=== PATIENT | male | born 1965 | race Caucasian/White ===

== ENCOUNTER 2017-08-01 23:14 | Inpatient (IN) ==
[2017-08-02] MEDS ORDERED: ACETAMINOPHEN 325 MG TABLET PO ONE (01:18)
[2017-08-02] MEDS ORDERED: SODIUM CHLORIDE 0.9% 1,000 ML IV STA ×2 (01:18→02:45)
[2017-08-02 01:51] LABS: Basophils % 0.5 % (0.0-0.8); Eosinophils % 1.5 % (0.00-10.9); Hematocrit 39.5 VOL% (42.0-52.0); Immature Granulocytes % 1.5 %; Immature Granulocytes Absolute 0.03 #; Lymphocytes # 0.4 10*3/uL (1.4-4.0); Lymphocytes % 19.9 % (21.2-54.2); Mean Corpuscular HGB Conc 32.9 GM/DL (32-36); Mean Corpuscular Hemoglobin 31 PG (27-34); Mean Corpuscular Volume 94.3 FL (87-102); Mean Platelet Volume 11.2 FL (9.6-12.0); Monocytes # 0.1 10*3/uL (0.11-0.8); Neutrophils # 1.4 10*3/uL (1.4-7.4); Neutrophils % 71.6 % (38.7-73.9); Platelet Count 76 T/CUMM (130-400); Red Blood Count 4.19 MC/CUMM (3.8-5.5); Red Cell Distribution Width 14.4 % (9.3-17.3)
[2017-08-02 02:00] LABS: PT Patient Result 10.2 SECS
[2017-08-02 02:10] LABS: Alanine Aminotransferase 99 U/L (16-61); Albumin 2.9 G/DL (3.4-5.0); Alkaline Phosphatase 116 U/L (45-117); Aspartate Amino Transferase 31 U/L (0-37); Blood Urea Nitrogen 16 MG/DL (7-18); Calcium 8.8 MG/DL (8.5-10.1); Glucose 107 MG/DL (74-106); Osmolality,Calculated 273.8 MOS/KG (273-304); Potassium 3.9 MMOL/L (3.5-5.1); Sodium 137 MMOL/L (136-145); Total Protein 6.5 G/DL (6.4-8.3)
[2017-08-02 02:11] LABS: Troponin I Only < 0.015 NG/ML (0.00-0.045)
[2017-08-02 02:41] LABS: Band Neutrophils 12 % (0-10); Eosinophils 8 % (0-10); Lymphocytes 14 % (20-55); Segmented Neutrophils 56 % (50-85); Total Cells Counted 100
[2017-08-02 04:02] LABS: Amorphous Crystals,Urine Occasional /HPF (Few); Apearance,Urine CLEAR (Clear); Bilirubin,Urine Negative (Negative); Blood, Urine Small mg/dL (Negative); Glucose,Urine (UA) Negative (Negative); Ketones,Urine Negative (Negative); Mucus,Urine Occasional /LPF (Occasional); Nitrite,Urine Negative (Negative); Protein,Urine Negative; RBC,Urine 1 /HPF (0-4); Urine Color Yellow (Yellow); Urine Specific Gravity 1.014 (1.001-1.035); WBC,Urine 2 /HPF (0-6)
[2017-08-02] MEDS ORDERED: PIPERACILLIN/TAZOBACTAM 3,375 MG in SODIUM CHLORIDE 0.9% 100 ML IV STA (04:07)
[2017-08-02] MEDS ORDERED: VANCOMYCIN INJ 1,000 MG in SODIUM CHLORIDE 0.9% 250 ML IV STA (04:07)
[2017-08-02] MEDS ORDERED: ONDANSETRON 4 MG/2 ML VIAL IV PRN (06:12)
[2017-08-02] MEDS: SODIUM CHLORIDE 0.9% 1,000 ML IV SCH ×2 (06:29→19:38)
[2017-08-02] MEDS: CEFEPIME 2,000 MG in SYRINGE 1 EACH IV SCH ×3 (06:57→22:10)
[2017-08-02] MEDS: BISACODYL 5 MG TABLET PO SCH (09:58)
[2017-08-02] MEDS: FILGRASTIM-SNDZ 480 MCG/0.8 ML SYRINGE SUBCUT SCH (09:58)
[2017-08-02] MEDS: PANTOPRAZOLE 40 MG TABLET PO SCH (09:58)
[2017-08-02] MEDS: ALLOPURINOL 300 MG TABLET PO SCH (09:58)
[2017-08-02] MEDS: MEROPENEM 1,000 MG in SYRINGE 1 EACH IV SCH ×2 (09:59→17:24)
[2017-08-02] MEDS ORDERED: LACTULOSE 20 GM/30 ML UDCUP PO ONE (10:18)
[2017-08-02] MEDS: DOCUSATE SODIUM 100 MG CAPSULE PO SCH (11:39)
[2017-08-02] MEDS: ACETAMINOPHEN 325 MG TABLET PO PRN ×2 (13:03→19:38)
[2017-08-03] MEDS: ACETAMINOPHEN 325 MG TABLET PO PRN ×2 (00:01→15:42)
[2017-08-03] MEDS: MEROPENEM 1,000 MG in SYRINGE 1 EACH IV SCH ×3 (01:16→17:36)
[2017-08-03] MEDS: CEFEPIME 2,000 MG in SYRINGE 1 EACH IV SCH ×3 (05:58→22:13)
[2017-08-03] MEDS: ALLOPURINOL 300 MG TABLET PO SCH (09:46)
[2017-08-03] MEDS: FILGRASTIM-SNDZ 480 MCG/0.8 ML SYRINGE SUBCUT SCH (09:46)
[2017-08-03] MEDS: PANTOPRAZOLE 40 MG TABLET PO SCH (09:46)
[2017-08-03] MEDS: DOCUSATE SODIUM 100 MG CAPSULE PO SCH (09:46)
[2017-08-03] MEDS: BISACODYL 5 MG TABLET PO SCH (09:46)
[2017-08-03] MEDS: SODIUM CHLORIDE 0.9% 1,000 ML IV SCH (10:55)
[2017-08-03] MEDS: guaiFENesin 200 MG/10 ML UDCUP PO PRN (12:33)
[2017-08-04] MEDS: SODIUM CHLORIDE 0.9% 1,000 ML IV SCH ×2 (00:20→12:29)
[2017-08-04] MEDS: MEROPENEM 1,000 MG in SYRINGE 1 EACH IV SCH ×3 (02:02→17:47)
[2017-08-04 05:21] LABS: Basophils % 0.9 % (0.0-0.8); Eosinophils % 0.3 % (0.00-10.9); Hematocrit 36.3 VOL% (42.0-52.0); Hemoglobin 12.1 GM/DL (14.0-18.0); Immature Granulocytes % 9.9 %; Immature Granulocytes Absolute 0.34 #; Lymphocytes # 0.2 10*3/uL (1.4-4.0); Lymphocytes % 6.4 % (21.2-54.2); Mean Corpuscular HGB Conc 33.3 GM/DL (32-36); Mean Corpuscular Hemoglobin 31 PG (27-34); Mean Corpuscular Volume 93.3 FL (87-102); Mean Platelet Volume 11.4 FL (9.6-12.0); Monocytes # 0.1 10*3/uL (0.11-0.8); Monocytes % 1.7 % (1.7-12.7); Neutrophils # 2.8 10*3/uL (1.4-7.4); Neutrophils % 80.8 % (38.7-73.9); Platelet Count 57 T/CUMM (130-400); Red Blood Count 3.89 MC/CUMM (3.8-5.5); Red Cell Distribution Width 14.3 % (9.3-17.3); White Blood Count 3.4 T/CUMM (4-12)
[2017-08-04 05:44] LABS: Calcium 8.5 MG/DL (8.5-10.1); Osmolality,Calculated 274.7 MOS/KG (273-304); Potassium 3.8 MMOL/L (3.5-5.1)
[2017-08-04 05:52] LABS: Band Neutrophils 4 % (0-10); Lymphocytes 7 % (20-55); Metamyelocytes 1 %; Segmented Neutrophils 78 % (50-85); Total Cells Counted 100
[2017-08-04 05:53] LABS: Microcytosis Slight; Platelet Estimate Decreased
[2017-08-04] MEDS: CEFEPIME 2,000 MG in SYRINGE 1 EACH IV SCH (06:08)
[2017-08-04] MEDS ORDERED: KETOROLAC 30 MG/1 ML VIAL IV ONE (07:57)
[2017-08-04] MEDS: FILGRASTIM-SNDZ 480 MCG/0.8 ML SYRINGE SUBCUT SCH (10:01)
[2017-08-04] MEDS: PANTOPRAZOLE 40 MG TABLET PO SCH (10:02)
[2017-08-04] MEDS: DOCUSATE SODIUM 100 MG CAPSULE PO SCH (10:02)
[2017-08-04] MEDS: BISACODYL 5 MG TABLET PO SCH (10:02)
[2017-08-04] MEDS: ALLOPURINOL 300 MG TABLET PO SCH (10:06)
[2017-08-04] MEDS ORDERED: MAGNESIUM CITRATE 300 ML BOTTLE PO PRN (11:08)
[2017-08-04] MEDS: ACETAMINOPHEN 325 MG TABLET PO PRN (17:46)
[2017-08-05] MEDS: MEROPENEM 1,000 MG in SYRINGE 1 EACH IV SCH ×3 (02:08→17:21)
[2017-08-05 05:30] LABS: Basophils % 1.1 % (0.0-0.8); Eosinophils % 0.3 % (0.00-10.9); Hematocrit 34.5 VOL% (42.0-52.0); Hemoglobin 11.8 GM/DL (14.0-18.0); Immature Granulocytes % 1.7 %; Immature Granulocytes Absolute 0.06 #; Lymphocytes # 0.1 10*3/uL (1.4-4.0); Lymphocytes % 3.4 % (21.2-54.2); Mean Corpuscular HGB Conc 34.2 GM/DL (32-36); Mean Corpuscular Hemoglobin 31 PG (27-34); Mean Corpuscular Volume 91.3 FL (87-102); Mean Platelet Volume 11.3 FL (9.6-12.0); Monocytes # 0.1 10*3/uL (0.11-0.8); Monocytes % 2.3 % (1.7-12.7); Neutrophils # 3.2 10*3/uL (1.4-7.4); Neutrophils % 91.2 % (38.7-73.9); Red Blood Count 3.78 MC/CUMM (3.8-5.5); Red Cell Distribution Width 14.4 % (9.3-17.3); White Blood Count 3.5 T/CUMM (4-12)
[2017-08-05 05:36] LABS: Platelet Count 67 T/CUMM (130-400)
[2017-08-05 05:52] LABS: Band Neutrophils 3 % (0-10); Calcium 8.4 MG/DL (8.5-10.1); Lymphocytes 2 % (20-55); Osmolality,Calculated 275.5 MOS/KG (273-304); Potassium 4.7 MMOL/L (3.5-5.1); Segmented Neutrophils 93 % (50-85); Total Cells Counted 100
[2017-08-05 05:53] LABS: Platelet Estimate Decreased
[2017-08-05] MEDS: DOCUSATE SODIUM 100 MG CAPSULE PO SCH (10:22)
[2017-08-05] MEDS: PANTOPRAZOLE 40 MG TABLET PO SCH (10:22)
[2017-08-05] MEDS: BISACODYL 5 MG TABLET PO SCH (10:23)
[2017-08-05] MEDS: ALLOPURINOL 300 MG TABLET PO SCH (10:24)
[2017-08-05] MEDS: FILGRASTIM-SNDZ 480 MCG/0.8 ML SYRINGE SUBCUT SCH (10:26)
[2017-08-05] MEDS: LEVOFLOXACIN INJ 750 MG in PREMIX 1 EACH IV SCH (10:35)
[2017-08-05] MEDS: ACETAMINOPHEN 325 MG TABLET PO PRN ×3 (11:04→20:14)
[2017-08-05] MEDS: guaiFENesin 200 MG/10 ML UDCUP PO PRN (15:00)
[2017-08-06] MEDS: MEROPENEM 1,000 MG in SYRINGE 1 EACH IV SCH ×3 (01:42→17:51)
[2017-08-06] MEDS: ACETAMINOPHEN 325 MG TABLET PO PRN (01:52)
[2017-08-06] MEDS: guaiFENesin 200 MG/10 ML UDCUP PO PRN ×2 (07:16→21:16)
[2017-08-06] MEDS: BISACODYL 5 MG TABLET PO SCH (08:59)
[2017-08-06] MEDS: DOCUSATE SODIUM 100 MG CAPSULE PO SCH (09:01)
[2017-08-06] MEDS: IBUPROFEN 400 MG TABLET PO PRN ×2 (09:01→21:09)
[2017-08-06] MEDS: ALLOPURINOL 300 MG TABLET PO SCH (09:02)
[2017-08-06] MEDS: PANTOPRAZOLE 40 MG TABLET PO SCH (09:02)
[2017-08-06] MEDS: FILGRASTIM-SNDZ 480 MCG/0.8 ML SYRINGE SUBCUT SCH (09:07)
[2017-08-06] MEDS: LEVOFLOXACIN INJ 750 MG in PREMIX 1 EACH IV SCH (09:15)
[2017-08-06] MEDS ORDERED: ACETAMINOPHEN 325 MG TABLET PO ONE (11:10)
[2017-08-06] MEDS ORDERED: diphenhydrAMINE CAP 25 MG CAPSULE PO ONE (11:12)
[2017-08-06] MEDS ORDERED: IMMUNE GLOBULIN 10% 20 GM in PREMIX 1 EACH IV ONE (11:30)
[2017-08-06] MEDS ORDERED: SODIUM CHLORIDE 3% 4 ML NEB RESP TX ONE (14:30)
[2017-08-07] MEDS: MEROPENEM 1,000 MG in SYRINGE 1 EACH IV SCH ×3 (01:30→17:18)
[2017-08-07] MEDS: ACETAMINOPHEN 325 MG TABLET PO PRN ×2 (01:34→19:30)
[2017-08-07 05:39] LABS: Basophils % 2.1 % (0.0-0.8); Eosinophils % 1.1 % (0.00-10.9); Hematocrit 35.4 VOL% (42.0-52.0); Hemoglobin 12.2 GM/DL (14.0-18.0); Immature Granulocytes % 13.8 %; Immature Granulocytes Absolute 0.26 #; Lymphocytes # 0.1 10*3/uL (1.4-4.0); Lymphocytes % 5.8 % (21.2-54.2); Mean Corpuscular HGB Conc 34.5 GM/DL (32-36); Mean Corpuscular Hemoglobin 31 PG (27-34); Mean Corpuscular Volume 90.3 FL (87-102); Mean Platelet Volume 10.8 FL (9.6-12.0); Monocytes % 1.6 % (1.7-12.7); Neutrophils # 1.4 10*3/uL (1.4-7.4); Neutrophils % 75.6 % (38.7-73.9); Platelet Count 89 T/CUMM (130-400); Red Blood Count 3.92 MC/CUMM (3.8-5.5); Red Cell Distribution Width 14.2 % (9.3-17.3); White Blood Count 1.9 T/CUMM (4-12)
[2017-08-07 06:21] LABS: Osmolality,Calculated 278.7 MOS/KG (273-304); Potassium 4.2 MMOL/L (3.5-5.1)
[2017-08-07 06:22] LABS: Band Neutrophils 9 % (0-10); Lymphocytes 16 % (20-55); Platelet Estimate Decreased; Segmented Neutrophils 70 % (50-85); Total Cells Counted 100
[2017-08-07] MEDS: DOCUSATE SODIUM 100 MG CAPSULE PO SCH (08:34)
[2017-08-07] MEDS: PANTOPRAZOLE 40 MG TABLET PO SCH (08:35)
[2017-08-07] MEDS: BISACODYL 5 MG TABLET PO SCH (08:35)
[2017-08-07] MEDS: ALLOPURINOL 300 MG TABLET PO SCH (08:35)
[2017-08-07] MEDS: FILGRASTIM-SNDZ 480 MCG/0.8 ML SYRINGE SUBCUT SCH (08:36)
[2017-08-07] MEDS ORDERED: diphenhydrAMINE 50 MG/1 ML VIAL IV PRN (09:52)
[2017-08-07] MEDS ORDERED: diphenhydrAMINE CAP 25 MG CAPSULE PO PRN (10:15)
[2017-08-07] MEDS ORDERED: diphenhydrAMINE CAP 25 MG CAPSULE ONE (10:21)
[2017-08-07] MEDS: guaiFENesin 200 MG/10 ML UDCUP PO PRN ×2 (10:23→17:18)
[2017-08-07] MEDS: LEVOFLOXACIN INJ 750 MG in PREMIX 1 EACH IV SCH (10:24)
[2017-08-07] MEDS ORDERED: BENZONATATE 100 MG CAPSULE PO PRN (13:16)
[2017-08-08] MEDS: MEROPENEM 1,000 MG in SYRINGE 1 EACH IV SCH (01:08)
[2017-08-08 04:27] LABS: Calcium 8.3 MG/DL (8.5-10.1); Potassium 4.3 MMOL/L (3.5-5.1)
[2017-08-08 07:36] LABS: Basophils % 0.5 % (0.0-0.8); Eosinophils % 0.5 % (0.00-10.9); Hematocrit 33.8 VOL% (42.0-52.0); Hemoglobin 11.5 GM/DL (14.0-18.0); Immature Granulocytes % 1.8 %; Immature Granulocytes Absolute 0.04 #; Lymphocytes # 0.2 10*3/uL (1.4-4.0); Lymphocytes % 6.8 % (21.2-54.2); Mean Corpuscular Hemoglobin 31 PG (27-34); Mean Corpuscular Volume 91.6 FL (87-102); Mean Platelet Volume 10.9 FL (9.6-12.0); Monocytes % 1.4 % (1.7-12.7); Platelet Count 107 T/CUMM (130-400); Red Blood Count 3.69 MC/CUMM (3.8-5.5); Red Cell Distribution Width 14.2 % (9.3-17.3); White Blood Count 2.2 T/CUMM (4-12)
[2017-08-08 09:07] LABS: Band Neutrophils 7 % (0-10); Hypochromasia 2+; Lymphocytes 5 % (20-55); Microcytosis 2+; Platelet Estimate Decreased; Segmented Neutrophils 81 % (50-85); Total Cells Counted 100
[2017-08-08] MEDS: LEVOFLOXACIN INJ 750 MG in PREMIX 1 EACH IV SCH (09:19)
[2017-08-08] MEDS: DOCUSATE SODIUM 100 MG CAPSULE PO SCH (09:20)
[2017-08-08] MEDS: BISACODYL 5 MG TABLET PO SCH (09:20)
[2017-08-08] MEDS: FILGRASTIM-SNDZ 480 MCG/0.8 ML SYRINGE SUBCUT SCH (09:20)
[2017-08-08] MEDS: ALLOPURINOL 300 MG TABLET PO SCH (09:20)
[2017-08-08] MEDS: PANTOPRAZOLE 40 MG TABLET PO SCH (09:20)
[2017-08-08] MEDS ORDERED: IMMUNE GLOBULIN 10% 20 GM in PREMIX 1 EACH IV ONE (09:27)
[2017-08-08] MEDS ORDERED: VORICONAZOLE 50 MG TABLET PO SCH (09:30)
[2017-08-08] MEDS: VANCOMYCIN INJ 1,250 MG in SODIUM CHLORIDE 0.9% 250 ML IV SCH ×2 (11:02→23:56)
[2017-08-08] MEDS: VORICONAZOLE 200 MG TABLET PO SCH ×2 (12:16→20:28)
[2017-08-08] MEDS: ACETAMINOPHEN 325 MG TABLET PO PRN (16:45)
[2017-08-08] MEDS: CEFEPIME 1,000 MG in SYRINGE 1 EACH IV SCH (18:26)
[2017-08-08 20:21] LABS: Apearance,Urine CLOUDY (Clear); Bilirubin,Urine Negative (Negative); Blood, Urine Moderate mg/dL (Negative); Glucose,Urine (UA) Negative (Negative); Ketones,Urine Negative (Negative); Mucus,Urine Occasional /LPF (Occasional); Nitrite,Urine Negative (Negative); Protein,Urine 30 MG/DL; RBC,Urine 11 /HPF (0-4); Squamous Epithelial Cell,Urine Occasional /HPF (0-10); Urine Color Yellow (Yellow); Urine Specific Gravity 1.013 (1.001-1.035); WBC,Urine 2 /HPF (0-6)
[2017-08-09] MEDS: guaiFENesin 200 MG/10 ML UDCUP PO PRN (05:13)
[2017-08-09] MEDS: CEFEPIME 1,000 MG in SYRINGE 1 EACH IV SCH ×2 (05:57→18:41)
[2017-08-09 06:09] LABS: Basophils % 0.4 % (0.0-0.8); Eosinophils % 1.3 % (0.00-10.9); Hematocrit 31.3 VOL% (42.0-52.0); Hemoglobin 10.3 GM/DL (14.0-18.0); Immature Granulocytes % 1.8 %; Immature Granulocytes Absolute 0.04 #; Lymphocytes # 0.2 10*3/uL (1.4-4.0); Lymphocytes % 6.7 % (21.2-54.2); Mean Corpuscular HGB Conc 32.9 GM/DL (32-36); Mean Corpuscular Hemoglobin 31 PG (27-34); Mean Corpuscular Volume 94.3 FL (87-102); Mean Platelet Volume 11.1 FL (9.6-12.0); Monocytes % 1.8 % (1.7-12.7); Platelet Count 108 T/CUMM (130-400); Red Blood Count 3.32 MC/CUMM (3.8-5.5); Red Cell Distribution Width 14.2 % (9.3-17.3); White Blood Count 2.2 T/CUMM (4-12)
[2017-08-09 06:33] LABS: Albumin 1.6 G/DL (3.4-5.0); Bilirubin,Total 1.7 MG/DL (0.2-1.0); Calcium 8.4 MG/DL (8.5-10.1); Osmolality,Calculated 275.8 MOS/KG (273-304); Potassium 4.5 MMOL/L (3.5-5.1); Total Protein 6.1 G/DL (6.4-8.3)
[2017-08-09 07:15] LABS: Band Neutrophils 7 % (0-10); Eosinophils 1 % (0-10); Hypochromasia 1+; Lymphocytes 7 % (20-55); Platelet Estimate Normal; Segmented Neutrophils 83 % (50-85); Total Cells Counted 100
[2017-08-09] MEDS: PANTOPRAZOLE 40 MG TABLET PO SCH (08:18)
[2017-08-09] MEDS: ALLOPURINOL 300 MG TABLET PO SCH (08:18)
[2017-08-09] MEDS: DOCUSATE SODIUM 100 MG CAPSULE PO SCH (08:18)
[2017-08-09] MEDS: FILGRASTIM-SNDZ 480 MCG/0.8 ML SYRINGE SUBCUT SCH (08:18)
[2017-08-09] MEDS: VORICONAZOLE 200 MG TABLET PO SCH ×2 (08:18→21:35)
[2017-08-09] MEDS: BISACODYL 5 MG TABLET PO SCH (08:19)
[2017-08-09] MEDS: LEVOFLOXACIN INJ 750 MG in PREMIX 1 EACH IV SCH (08:19)
[2017-08-09] MEDS: VANCOMYCIN INJ 1,250 MG in SODIUM CHLORIDE 0.9% 250 ML IV SCH (11:08)
[2017-08-09] MEDS: ACETAMINOPHEN 325 MG TABLET PO PRN (15:16)
[2017-08-10] MEDS: VANCOMYCIN INJ 1,250 MG in SODIUM CHLORIDE 0.9% 250 ML IV SCH ×3 (00:07→20:25)
[2017-08-10] MEDS ORDERED: MEPERIDINE 50 MG/1 ML VIAL IM ONE (06:00)
[2017-08-10] MEDS ORDERED: diphenhydrAMINE 50 MG/1 ML VIAL IM ONE (06:00)
[2017-08-10] MEDS ORDERED: BENZONATATE 100 MG CAPSULE PO ONE (06:00)
[2017-08-10] MEDS: CEFEPIME 1,000 MG in SYRINGE 1 EACH IV SCH ×2 (06:08→18:37)
[2017-08-10 06:26] LABS: Eosinophils % 1.2 % (0.00-10.9); Hemoglobin 10.1 GM/DL (14.0-18.0); Immature Granulocytes % 19.9 %; Immature Granulocytes Absolute 0.33 #; Lymphocytes # 0.1 10*3/uL (1.4-4.0); Lymphocytes % 8.4 % (21.2-54.2); Mean Corpuscular HGB Conc 33.7 GM/DL (32-36); Mean Corpuscular Hemoglobin 31 PG (27-34); Mean Corpuscular Volume 92.3 FL (87-102); Mean Platelet Volume 10.9 FL (9.6-12.0); Monocytes # 0.1 10*3/uL (0.11-0.8); Monocytes % 3.6 % (1.7-12.7); Neutrophils # 1.1 10*3/uL (1.4-7.4); Neutrophils % 66.9 % (38.7-73.9); Platelet Count 117 T/CUMM (130-400); Red Blood Count 3.25 MC/CUMM (3.8-5.5); Red Cell Distribution Width 14.3 % (9.3-17.3); White Blood Count 1.7 T/CUMM (4-12)
[2017-08-10 06:56] LABS: Albumin 1.6 G/DL (3.4-5.0); Bilirubin,Total 1.7 MG/DL (0.2-1.0); Calcium 8.5 MG/DL (8.5-10.1); Osmolality,Calculated 275.8 MOS/KG (273-304); Potassium 4.6 MMOL/L (3.5-5.1)
[2017-08-10 07:02] LABS: Band Neutrophils 3 % (0-10); Eosinophils 1 % (0-10); Hypochromasia 1+; Lymphocytes 5 % (20-55); Segmented Neutrophils 86 % (50-85); Total Cells Counted 100
[2017-08-10 07:03] LABS: Microcytosis 1+; Platelet Estimate Adequate
[2017-08-10] MEDS ORDERED: LIDOCAINE 2% VISCOUS 100 ML BOTTLE SWISH/SWAL ONE (10:16)
[2017-08-10] MEDS ORDERED: LIDOCAINE 2% 20 ML VIAL RESP TX ONE (10:16)
[2017-08-10] MEDS ORDERED: LIDOCAINE 1% 20 ML VIAL MISC INJ ONE (10:16)
[2017-08-10] MEDS ORDERED: EPINEPHrine 1 MG/ML VIAL ET ONE (10:29)
[2017-08-10] MEDS ORDERED: EPINEPHrine 1 MG/ML VIAL ONE (11:05)
[2017-08-10] MEDS: BISACODYL 5 MG TABLET PO SCH (12:54)
[2017-08-10] MEDS: PANTOPRAZOLE 40 MG TABLET PO SCH (12:54)
[2017-08-10] MEDS: DOCUSATE SODIUM 100 MG CAPSULE PO SCH (12:54)
[2017-08-10] MEDS: VORICONAZOLE 200 MG TABLET PO SCH ×2 (12:55→20:20)
[2017-08-10] MEDS: ALLOPURINOL 300 MG TABLET PO SCH (12:55)
[2017-08-10] MEDS: FILGRASTIM-SNDZ 480 MCG/0.8 ML SYRINGE SUBCUT SCH (12:59)
[2017-08-10] MEDS: LEVOFLOXACIN INJ 750 MG in PREMIX 1 EACH IV SCH (13:07)
[2017-08-10] MEDS: IBUPROFEN 400 MG TABLET PO PRN (16:25)
[2017-08-11] MEDS: VANCOMYCIN INJ 1,250 MG in SODIUM CHLORIDE 0.9% 250 ML IV SCH (04:10)
[2017-08-11 05:02] LABS: Basophils % 0.8 % (0.0-0.8); Eosinophils % 2.5 % (0.00-10.9); Hematocrit 29.2 VOL% (42.0-52.0); Hemoglobin 9.5 GM/DL (14.0-18.0); Immature Granulocytes % 1.7 %; Immature Granulocytes Absolute 0.02 #; Lymphocytes # 0.1 10*3/uL (1.4-4.0); Lymphocytes % 8.4 % (21.2-54.2); Mean Corpuscular HGB Conc 32.5 GM/DL (32-36); Mean Corpuscular Hemoglobin 31 PG (27-34); Mean Corpuscular Volume 95.1 FL (87-102); Monocytes % 2.5 % (1.7-12.7); Neutrophils % 84.1 % (38.7-73.9); Platelet Count 125 T/CUMM (130-400); Red Blood Count 3.07 MC/CUMM (3.8-5.5); Red Cell Distribution Width 14.1 % (9.3-17.3); White Blood Count 1.2 T/CUMM (4-12)
[2017-08-11 05:44] LABS: Band Neutrophils 1 % (0-10); Eosinophils 2 % (0-10); Lymphocytes 4 % (20-55); Segmented Neutrophils 90 % (50-85); Total Cells Counted 100
[2017-08-11 05:45] LABS: Hypochromasia 1+; Platelet Estimate Decreased
[2017-08-11 05:46] LABS: Microcytosis 1+
[2017-08-11 05:54] LABS: Albumin 1.7 G/DL (3.4-5.0); Bilirubin,Total 1.5 MG/DL (0.2-1.0); Osmolality,Calculated 285.4 MOS/KG (273-304); Potassium 4.2 MMOL/L (3.5-5.1); Total Protein 5.9 G/DL (6.4-8.3)
[2017-08-11] MEDS: CEFEPIME 1,000 MG in SYRINGE 1 EACH IV SCH ×2 (06:12→18:18)
[2017-08-11] MEDS ORDERED: LINACLOTIDE 145 MCG CAPSULE PO SCH (07:30)
[2017-08-11] MEDS: ALLOPURINOL 300 MG TABLET PO SCH (09:06)
[2017-08-11] MEDS: BISACODYL 5 MG TABLET PO SCH (09:06)
[2017-08-11] MEDS: DOCUSATE SODIUM 100 MG CAPSULE PO SCH (09:06)
[2017-08-11] MEDS: PANTOPRAZOLE 40 MG TABLET PO SCH (09:07)
[2017-08-11] MEDS: VORICONAZOLE 200 MG TABLET PO SCH ×2 (09:12→20:45)
[2017-08-11] MEDS: FILGRASTIM-SNDZ 480 MCG/0.8 ML SYRINGE SUBCUT SCH (09:14)
[2017-08-11] MEDS: LEVOFLOXACIN INJ 750 MG in PREMIX 1 EACH IV SCH (09:17)
[2017-08-11] MEDS ORDERED: MAGNESIUM HYDROXIDE SUSP 30 ML UDCUP PO ONE (09:35)
[2017-08-11] MEDS ORDERED: LACTULOSE 20 GM/30 ML UDCUP PO ONE (09:36)
[2017-08-11] MEDS ORDERED: BISACODYL 5 MG TABLET PO ONE (09:37)
[2017-08-11] MEDS: BENZONATATE 100 MG CAPSULE PO SCH ×2 (11:26→20:45)
[2017-08-11] MEDS: IBUPROFEN 400 MG TABLET PO PRN (11:35)
[2017-08-11 15:41] LABS: Histoplasma Immnodiffusion Negative (Negative)
[2017-08-11] MEDS ORDERED: SODIUM CHLORIDE 0.9% 500 ML IV ONE (18:22)
[2017-08-12] MEDS: CEFEPIME 1,000 MG in SYRINGE 1 EACH IV SCH ×2 (05:34→18:11)
[2017-08-12 06:15] LABS: Calcium 8.1 MG/DL (8.5-10.1); Osmolality,Calculated 287.4 MOS/KG (273-304); Potassium 3.8 MMOL/L (3.5-5.1)
[2017-08-12] MEDS ORDERED: VANCOMYCIN INJ 1,250 MG in SODIUM CHLORIDE 0.9% 250 ML IV PRN (08:10)
[2017-08-12] MEDS: FILGRASTIM-SNDZ 480 MCG/0.8 ML SYRINGE SUBCUT SCH (08:20)
[2017-08-12] MEDS: VORICONAZOLE 200 MG TABLET PO SCH (08:20)
[2017-08-12] MEDS: BENZONATATE 100 MG CAPSULE PO SCH ×2 (08:21→21:00)
[2017-08-12] MEDS: PANTOPRAZOLE 40 MG TABLET PO SCH (08:21)
[2017-08-12] MEDS: LINACLOTIDE 145 MCG CAPSULE PO SCH (08:21)
[2017-08-12] MEDS: BISACODYL 5 MG TABLET PO SCH (08:21)
[2017-08-12 08:30] LABS: Basophils % 0.6 % (0.0-0.8); Eosinophils % 1.7 % (0.00-10.9); Hematocrit 30.3 VOL% (42.0-52.0); Hemoglobin 9.9 GM/DL (14.0-18.0); Immature Granulocytes % 11.5 %; Lymphocytes # 0.1 10*3/uL (1.4-4.0); Lymphocytes % 5.2 % (21.2-54.2); Mean Corpuscular HGB Conc 32.7 GM/DL (32-36); Mean Corpuscular Hemoglobin 31 PG (27-34); Mean Corpuscular Volume 94.7 FL (87-102); Mean Platelet Volume 11.3 FL (9.6-12.0); Monocytes # 0.1 10*3/uL (0.11-0.8); Monocytes % 2.9 % (1.7-12.7); Neutrophils # 1.4 10*3/uL (1.4-7.4); Neutrophils % 78.1 % (38.7-73.9); Platelet Count 142 T/CUMM (130-400); Red Cell Distribution Width 14.2 % (9.3-17.3); White Blood Count 1.7 T/CUMM (4-12)
[2017-08-12] MEDS: SODIUM CHLORIDE 0.9% 1,000 ML IV SCH ×2 (08:43→21:01)
[2017-08-12 08:55] LABS: Band Neutrophils 3 % (0-10); Eosinophils 1 % (0-10); Lymphocytes 5 % (20-55); Segmented Neutrophils 89 % (50-85); Total Cells Counted 100
[2017-08-12 08:56] LABS: Giant Platelets Few; Hypochromasia 1+; Microcytosis 1+; Platelet Estimate Normal
[2017-08-12] MEDS ORDERED: VANCOMYCIN INJ 1,250 MG in SODIUM CHLORIDE 0.9% 250 ML IV ONE (09:00)
[2017-08-13] MEDS: SODIUM CHLORIDE 0.9% 1,000 ML IV SCH (04:51)
[2017-08-13] MEDS: CEFEPIME 1,000 MG in SYRINGE 1 EACH IV SCH ×2 (06:10→15:11)
[2017-08-13 08:19] VITALS: BP 135/75
[2017-08-13 08:36] LABS: Calcium 7.9 MG/DL (8.5-10.1); Osmolality,Calculated 287.4 MOS/KG (273-304); Potassium 3.9 MMOL/L (3.5-5.1)
[2017-08-13] MEDS ORDERED: LEVOFLOXACIN INJ 750 MG in PREMIX 1 EACH IV SCH (09:00)
[2017-08-13] MEDS: LINACLOTIDE 145 MCG CAPSULE PO SCH (09:14)
[2017-08-13] MEDS: BISACODYL 5 MG TABLET PO SCH (09:19)
[2017-08-13] MEDS: PANTOPRAZOLE 40 MG TABLET PO SCH (09:23)
[2017-08-13] MEDS: BENZONATATE 100 MG CAPSULE PO SCH (09:23)
[2017-08-13] MEDS: FILGRASTIM-SNDZ 480 MCG/0.8 ML SYRINGE SUBCUT SCH (09:25)
[2017-08-13] MEDS ORDERED: LOPERAMIDE 2 MG CAPSULE PO ONE (12:50)
[2017-08-13] MEDS ORDERED: LOPERAMIDE 2 MG CAPSULE PO PRN (12:52)
[2017-08-13] MEDS ORDERED: HEPARIN LOCK FLUSH 500 UNIT/5 ML SYRINGE IV ONE (15:04)
== END 2017-08-13 16:25 | disposition home or self-care (01) | DRG 987 ==
LOC: N.ED 23:14 → SUATTDRO 08-02 04:52 → N.EDINP 08-02 04:52 → N.4E 08-02 05:31
PROVIDERS: ADMIT Internal Medicine; ATTEND Internal Medicine
PROC: BRONCHB (2017-08-10 09:20)

== ENCOUNTER 2019-10-24 14:22 | Inpatient (IN) ==
[2019-10-24 15:20] LABS: Basophils # 0.1 10*3/uL (0.0-0.2); Eosinophils % 0.1 % (0.00-10.9); Hemoglobin 15.7 GM/DL (14.0-18.0); Immature Granulocytes % 0.8 %; Immature Granulocytes Absolute 0.06 #; Lymphocytes # 2.9 10*3/uL (1.4-4.0); Lymphocytes % 39.9 % (21.2-54.2); Mean Corpuscular HGB Conc 32.7 GM/DL (32-36); Mean Corpuscular Volume 94.7 FL (87-102); Mean Platelet Volume 10.7 FL (9.6-12.0); Monocytes % 13.9 % (1.7-12.7); NRBC # 0.02 10*3/uL; Neutrophils % 44.3 % (38.7-73.9); Platelet Count 73 T/CUMM (130-400); Red Blood Count 5.07 MC/CUMM (3.8-5.5); Red Cell Distribution Width 16.8 % (9.3-17.3); White Blood Count 7.3 T/CUMM (4-12)
[2019-10-24 15:41] LABS: Albumin 2.5 G/DL (3.4-5.0); Bilirubin,Total 2.5 MG/DL (0.2-1.0); Calcium 11.9 MG/DL (8.5-10.1); Osmolality,Calculated 275.8 MOS/KG (273-304)
[2019-10-24] MEDS ORDERED: SODIUM CHLORIDE 0.9% 1,000 ML IV STA (15:52)
[2019-10-24 15:58] LABS: Eosinophils 2 % (0-10); Hypochromasia 3+; Lymphocytes 31 % (20-55); Microcytosis 1+; Segmented Neutrophils 59 % (50-85); Total Cells Counted 100
[2019-10-24] MEDS ORDERED: PIPERACILLIN/TAZOBACTAM 3,375 MG in SODIUM CHLORIDE 0.9% 100 ML IV STA (17:22)
[2019-10-24] MEDS ORDERED: GLUCAGON 1 MG VIAL IM PRN (17:47)
[2019-10-24] MEDS ORDERED: DEXTROSE 50% 25 GM/50 ML VIAL IV PRN (17:47)
[2019-10-24 17:49] LABS: Uric Acid 4.5 MG/DL (3.5-7.2)
[2019-10-24] MEDS ORDERED: LORazepam 2 MG/1 ML VIAL ONE (17:54)
[2019-10-24] MEDS ORDERED: ALBUTEROL/IPRATROPIUM 3 ML NEB RESP TX PRN (17:56)
[2019-10-24] MEDS ORDERED: guaiFENesin 200 MG/10 ML UDCUP PO PRN (18:01)
[2019-10-24 19:51] LABS: Troponin I < 0.015 NG/ML (0.00-0.045)
[2019-10-24] MEDS: SODIUM CHLORIDE 0.9% 1,000 ML IV SCH (20:34)
[2019-10-24 22:01] LABS: Bilirubin,Urine Small mg/dL (Negative); Blood, Urine Negative (Negative); Calcium Oxalate Crystals,Urine Occasional /HPF (Few); Glucose,Urine (UA) Negative (Negative); Hyaline Casts,Urine 7 /LPF (0-3); Ketones,Urine Negative (Negative); Mucus,Urine Occasional /LPF (Occasional); Nitrite,Urine Negative (Negative); Protein,Urine Negative; RBC,Urine 36 /HPF (0-4); Squamous Epithelial Cell,Urine Occasional /HPF (0-10); Urine Appearance CLEAR (Clear); Urine Color Amber (Yellow); Urine Specific Gravity 1.059 (1.001-1.035); WBC,Urine 2 /HPF (0-6)
[2019-10-24 22:09] LABS: Troponin I < 0.015 NG/ML (0.00-0.045)
[2019-10-24] MEDS: ACETAMINOPHEN 325 MG TABLET PO PRN (23:29)
[2019-10-25] MEDS: SODIUM CHLORIDE 0.9% 1,000 ML IV SCH ×4 (02:39→17:57)
[2019-10-25] MEDS: ACETAMINOPHEN 325 MG TABLET PO PRN ×2 (04:35→22:59)
[2019-10-25 05:18] LABS: Basophils # 0.1 10*3/uL (0.0-0.2); Basophils % 0.9 % (0.0-0.8); Eosinophils % 0.3 % (0.00-10.9); Hematocrit 43.2 VOL% (42.0-52.0); Hemoglobin 14.3 GM/DL (14.0-18.0); Immature Granulocytes % 1.9 %; Immature Granulocytes Absolute 0.13 #; Lymphocytes # 2.4 10*3/uL (1.4-4.0); Lymphocytes % 35.2 % (21.2-54.2); Mean Corpuscular HGB Conc 33.1 GM/DL (32-36); Mean Corpuscular Volume 95.2 FL (87-102); Mean Platelet Volume 11.2 FL (9.6-12.0); Monocytes % 18.8 % (1.7-12.7); NRBC # 0.02 10*3/uL; Neutrophils % 42.9 % (38.7-73.9); Platelet Count 66 T/CUMM (130-400); Red Blood Count 4.54 MC/CUMM (3.8-5.5); Red Cell Distribution Width 16.2 % (9.3-17.3); White Blood Count 6.9 T/CUMM (4-12)
[2019-10-25 05:42] LABS: Band Neutrophils 2 % (0-10); Lymphocytes 36 % (20-55); Nucleated Red Blood Cells 1 (0-5); Platelet Estimate Decreased; Segmented Neutrophils 55 % (50-85); Total Cells Counted 100
[2019-10-25 05:43] LABS: Atypical Lymphocytes Few; Microcytosis 1+
[2019-10-25 05:44] LABS: Hypochromasia 1+
[2019-10-25 05:47] LABS: Albumin 2.3 G/DL (3.4-5.0); Bilirubin,Total 2.7 MG/DL (0.2-1.0); Calcium 11.8 MG/DL (8.5-10.1); Osmolality,Calculated 277.5 MOS/KG (273-304); Total Protein 5.4 G/DL (6.4-8.3)
[2019-10-25] MEDS ORDERED: MAGNESIUM SULF RIDER 4 GM in PREMIX 1 EACH IV PRN (07:35)
[2019-10-25] MEDS ORDERED: MAGNESIUM SULF RIDER 2 GM in PREMIX 1 EACH IV PRN (07:35)
[2019-10-25] MEDS: predniSONE 50 MG TABLET PO SCH (09:43)
[2019-10-25] MEDS: allopurinoL 300 MG TABLET PO SCH (09:43)
[2019-10-25 10:05] LABS: Hepatitis B Core IgM Quant 0.22 Index; Hepatitis B Surface Ag Quant < 0.10 Index; Hepatitis B Surface Ag Result Negative (Negative); Hepatitis C Virus Ab Quant 0.05 Index; Hepatitis C Virus Ab Result Negative (Negative)
[2019-10-25] MEDS ORDERED: MYLANTA/LIDO VISC 2:1 300 ML BOTTLE SWISH/SPIT PRN (12:51)
[2019-10-25] MEDS ORDERED: traMADol 50 MG TABLET PO PRN (12:51)
[2019-10-25] MEDS ORDERED: chlorproMAZINE INJ 25 MG in SODIUM CHLORIDE 0.9% 100 ML IV PRN (12:51)
[2019-10-25] MEDS ORDERED: chlorproMAZINE INJ 50 MG in SODIUM CHLORIDE 0.9% 100 ML IV PRN (12:51)
[2019-10-25] MEDS ORDERED: MAGNESIUM HYDROXIDE SUSP 30 ML UDCUP PO PRN (12:51)
[2019-10-25] MEDS ORDERED: guaiFENesin 200 MG/10 ML UDCUP PO PRN (12:51)
[2019-10-25] MEDS ORDERED: diphenhydrAMINE CAP 25 MG CAPSULE PO PRN (12:51)
[2019-10-25] MEDS ORDERED: ALUMINUM/MAGNES/SIMETH MAX STR 30 ML UDCUP PO PRN (12:51)
[2019-10-25] MEDS ORDERED: PROMETHAZINE INJ 25 MG in SODIUM CHLORIDE 0.9% 50 ML IV PRN (12:51)
[2019-10-25] MEDS ORDERED: MYLANTA/LIDO VISC 2:1 300 ML BOTTLE SWISH/SWAL PRN (12:51)
[2019-10-25] MEDS ORDERED: LACTULOSE 20 GM/30 ML UDCUP PO PRN (12:51)
[2019-10-25] MEDS ORDERED: LOPERAMIDE 2 MG CAPSULE PO PRN ×2 (12:51)
[2019-10-25] MEDS ORDERED: ONDANSETRON 4 MG/2 ML VIAL IV PRN (12:51)
[2019-10-25] MEDS ORDERED: ACETAMINOPHEN 325 MG TABLET PO PRN (12:51)
[2019-10-25] MEDS ORDERED: TEMAZEPAM 7.5 MG CAPSULE PO PRN (12:51)
[2019-10-25] MEDS ORDERED: ALPRAZolam 0.25 MG TABLET PO PRN (12:51)
[2019-10-25] MEDS ORDERED: DEXAMETHASONE 10 MG/1 ML VIAL IV ONE (16:00)
[2019-10-25] MEDS ORDERED: FOSAPREPITANT 150 MG in SODIUM CHLORIDE 0.9% 100 ML IV ONE (16:00)
[2019-10-25] MEDS ORDERED: diphenhydrAMINE 50 MG/1 ML VIAL IV ONE (16:00)
[2019-10-25] MEDS ORDERED: ACETAMINOPHEN 500 MG TABLET PO ONE (16:00)
[2019-10-25] MEDS ORDERED: PALONOSETRON 0.25 MG/5 ML VIAL IV ONE (16:00)
[2019-10-25] MEDS ORDERED: CYCLOPHOSPHAMIDE INJ 1,500 MG in SODIUM CHLORIDE 0.9% 250 ML IV ONE (17:00)
[2019-10-25] MEDS ORDERED: VINCRISTINE IV ONE (17:00)
[2019-10-25] MEDS ORDERED: ETOPOSIDE 100 MG in SODIUM CHLORIDE 0.9% 500 ML IV ONE (17:00)
[2019-10-25] MEDS ORDERED: DOXORUBICIN IV ONE (17:00)
[2019-10-25] MEDS ORDERED: RITUXIMAB-ABBS 500 MG, RITUXIMAB-ABBS 300 MG in SODIUM CHLORIDE 0.9% 720 ML IV ONE (17:00)
[2019-10-26] MEDS: SODIUM CHLORIDE 0.9% 1,000 ML IV SCH ×3 (03:56→23:03)
[2019-10-26 05:56] LABS: Basophils % 0.5 % (0.0-0.8); Hematocrit 43.1 VOL% (42.0-52.0); Hemoglobin 14.1 GM/DL (14.0-18.0); Immature Granulocytes % 1.6 %; Immature Granulocytes Absolute 0.12 #; Lymphocytes # 1.5 10*3/uL (1.4-4.0); Lymphocytes % 20.5 % (21.2-54.2); Mean Corpuscular HGB Conc 32.7 GM/DL (32-36); Mean Corpuscular Volume 95.1 FL (87-102); Mean Platelet Volume 11.6 FL (9.6-12.0); Monocytes % 8.9 % (1.7-12.7); NRBC # 0.02 10*3/uL; Neutrophils % 68.5 % (38.7-73.9); Red Blood Count 4.53 MC/CUMM (3.8-5.5); Red Cell Distribution Width 16.9 % (9.3-17.3); White Blood Count 7.5 T/CUMM (4-12)
[2019-10-26 06:09] LABS: Platelet Count 33 T/CUMM (130-400)
[2019-10-26 06:14] LABS: Bilirubin,Total 1.6 MG/DL (0.2-1.0); Osmolality,Calculated 286.4 MOS/KG (273-304); Total Protein 5.2 G/DL (6.4-8.3)
[2019-10-26 06:16] LABS: Free T4 (Free Thyroxine) 1.26 NG/DL (0.76-1.46)
[2019-10-26 06:27] LABS: Atypical Lymphocytes Few; Band Neutrophils 8 % (0-10); Lymphocytes 30 % (20-55); Segmented Neutrophils 58 % (50-85); Total Cells Counted 100
[2019-10-26 06:28] LABS: Anisocytosis 1+; Hypochromasia Slight; Microcytosis 1+; Ovalocytes Slight; Polychromasia Slight
[2019-10-26 06:29] LABS: Platelet Estimate Decreased
[2019-10-26 08:09] LABS: Uric Acid 4.6 MG/DL (3.5-7.2)
[2019-10-26] MEDS: allopurinoL 300 MG TABLET PO SCH (08:29)
[2019-10-26] MEDS: predniSONE 50 MG TABLET PO SCH (08:29)
[2019-10-26] MEDS: MULTIVITAMIN (CENTRUM) TABLET PO SCH (08:29)
[2019-10-26] MEDS ORDERED: RASBURICASE 7.5 MG in SODIUM CHLORIDE 0.9% 50 ML IV ONE (09:00)
[2019-10-26] MEDS: DOCUSATE SODIUM 100 MG CAPSULE PO SCH (21:53)
[2019-10-26] MEDS ORDERED: ETOPOSIDE 100 MG in SODIUM CHLORIDE 0.9% 500 ML IV ONE (22:00)
[2019-10-27 06:40] LABS: Basophils % 0.6 % (0.0-0.8); Hematocrit 40.9 VOL% (42.0-52.0); Hemoglobin 13.1 GM/DL (14.0-18.0); Immature Granulocytes % 1.3 %; Immature Granulocytes Absolute 0.08 #; Lymphocytes % 32.1 % (21.2-54.2); Mean Corpuscular Volume 97.4 FL (87-102); Monocytes % 6.9 % (1.7-12.7); Neutrophils % 59.1 % (38.7-73.9); White Blood Count 6.4 T/CUMM (4-12)
[2019-10-27 06:41] LABS: Platelet Count 21 T/CUMM (130-400)
[2019-10-27 06:52] LABS: PT Patient Result 11.2 SECS (9.8-11.9); Partial Thromboplastin Time 22.3 SECS (23.9-33.8)
[2019-10-27 06:55] LABS: Albumin 1.9 G/DL (3.4-5.0); Bilirubin,Total 1.1 MG/DL (0.2-1.0); Calcium 11.2 MG/DL (8.5-10.1); Total Protein 4.9 G/DL (6.4-8.3)
[2019-10-27 06:56] LABS: Osmolality,Calculated 287.3 MOS/KG (273-304)
[2019-10-27 06:57] LABS: Uric Acid 2.1 MG/DL (3.5-7.2)
[2019-10-27 07:03] LABS: Band Neutrophils 17 % (0-10); Lymphocytes 30 % (20-55); Platelet Estimate Decreased; Segmented Neutrophils 48 % (50-85); Total Cells Counted 100
[2019-10-27 07:04] LABS: Anisocytosis 1+; Macrocytosis 1+
[2019-10-27] MEDS: SODIUM CHLORIDE 0.9% 1,000 ML IV SCH ×3 (07:15→17:44)
[2019-10-27] MEDS: predniSONE 50 MG TABLET PO SCH (08:20)
[2019-10-27] MEDS: DOCUSATE SODIUM 100 MG CAPSULE PO SCH ×2 (08:20→21:19)
[2019-10-27] MEDS: MULTIVITAMIN (CENTRUM) TABLET PO SCH (08:20)
[2019-10-27] MEDS: allopurinoL 300 MG TABLET PO SCH (08:20)
[2019-10-27] MEDS: POLYETHYLENE GLYCOL POWDER 17 GM PACK PO SCH (14:30)
[2019-10-27] MEDS ORDERED: ETOPOSIDE 100 MG in SODIUM CHLORIDE 0.9% 500 ML IV ONE (18:00)
[2019-10-28 06:16] LABS: Basophils % 0.2 % (0.0-0.8); Eosinophils % 0.2 % (0.00-10.9); Hematocrit 38.9 VOL% (42.0-52.0); Hemoglobin 12.9 GM/DL (14.0-18.0); Immature Granulocytes % 1.1 %; Immature Granulocytes Absolute 0.05 #; Lymphocytes # 1.4 10*3/uL (1.4-4.0); Lymphocytes % 30.1 % (21.2-54.2); Mean Corpuscular HGB Conc 33.2 GM/DL (32-36); Mean Corpuscular Volume 95.8 FL (87-102); Monocytes % 14.6 % (1.7-12.7); Neutrophils % 53.8 % (38.7-73.9); Red Blood Count 4.06 MC/CUMM (3.8-5.5); Red Cell Distribution Width 16.9 % (9.3-17.3); White Blood Count 4.6 T/CUMM (4-12)
[2019-10-28 06:19] LABS: Platelet Count 12 T/CUMM (130-400)
[2019-10-28 06:42] LABS: Uric Acid 3.1 MG/DL (3.5-7.2)
[2019-10-28 06:43] LABS: Band Neutrophils 5 % (0-10); Lymphocytes 33 % (20-55); Metamyelocytes 2 %; Nucleated Red Blood Cells 4 (0-5); Segmented Neutrophils 44 % (50-85); Total Cells Counted 100
[2019-10-28 06:44] LABS: Atypical Lymphocytes Few; Calcium 11.6 MG/DL (8.5-10.1); Hypochromasia Slight; Osmolality,Calculated 286.3 MOS/KG (273-304); Platelet Estimate Decreased; Reactive Lymphocytes 2+; Total Protein 4.7 G/DL (6.4-8.3)
[2019-10-28] MEDS ORDERED: SODIUM CHLORIDE 0.9% 1,000 ML IV PRN (07:20)
[2019-10-28] MEDS: MULTIVITAMIN (CENTRUM) TABLET PO SCH (09:01)
[2019-10-28] MEDS: POLYETHYLENE GLYCOL POWDER 17 GM PACK PO SCH (09:01)
[2019-10-28] MEDS: allopurinoL 300 MG TABLET PO SCH (09:01)
[2019-10-28] MEDS: DOCUSATE SODIUM 100 MG CAPSULE PO SCH ×2 (09:02→21:16)
[2019-10-28] MEDS: predniSONE 50 MG TABLET PO SCH (09:02)
[2019-10-28] MEDS: FLUCONAZOLE 200 MG TABLET PO SCH (09:10)
[2019-10-28] MEDS: FILGRASTIM-SNDZ 480 MCG/0.8 ML SYRINGE SUBCUT SCH (09:12)
[2019-10-28] MEDS ORDERED: ZOLEDRONIC ACID 3 MG in SODIUM CHLORIDE 0.9% 100 ML IV ONE (10:15)
[2019-10-28] MEDS: SODIUM CHLORIDE 0.9% 1,000 ML IV SCH (11:07)
[2019-10-29] MEDS: LEVOTHYROXINE 75 MCG TABLET PO SCH (05:48)
[2019-10-29] MEDS: SODIUM CHLORIDE 0.9% 1,000 ML IV SCH (05:49)
[2019-10-29 06:14] LABS: Basophils % 0.9 % (0.0-0.8); Eosinophils % 0.3 % (0.00-10.9); Hematocrit 39.2 VOL% (42.0-52.0); Hemoglobin 12.8 GM/DL (14.0-18.0); Immature Granulocytes % 11.5 %; Immature Granulocytes Absolute 0.39 #; Lymphocytes % 28.2 % (21.2-54.2); Mean Corpuscular HGB Conc 32.7 GM/DL (32-36); Mean Corpuscular Volume 94.9 FL (87-102); Monocytes % 12.4 % (1.7-12.7); Neutrophils % 46.7 % (38.7-73.9); Red Blood Count 4.13 MC/CUMM (3.8-5.5); Red Cell Distribution Width 16.6 % (9.3-17.3); White Blood Count 3.4 T/CUMM (4-12)
[2019-10-29 06:18] LABS: Platelet Count 16 T/CUMM (130-400)
[2019-10-29 06:26] LABS: Calcium 10.9 MG/DL (8.5-10.1); Osmolality,Calculated 281.5 MOS/KG (273-304)
[2019-10-29 06:32] LABS: Uric Acid 3.9 MG/DL (3.5-7.2)
[2019-10-29 06:58] LABS: Band Neutrophils 1 % (0-10); Lymphocytes 27 % (20-55); Segmented Neutrophils 61 % (50-85); Total Cells Counted 100
[2019-10-29 07:00] LABS: Polychromasia Slight
[2019-10-29 07:01] LABS: Macrocytosis 1+
[2019-10-29] MEDS ORDERED: SODIUM CHLORIDE 0.9% 1,000 ML IV PRN ×2 (07:01→11:18)
[2019-10-29 07:03] LABS: Atypical Lymphocytes Few
[2019-10-29 07:04] LABS: Platelet Estimate Decreased
[2019-10-29] MEDS: POLYETHYLENE GLYCOL POWDER 17 GM PACK PO SCH ×2 (08:41→08:46)
[2019-10-29] MEDS: PIPERACILLIN/TAZOBACTAM 3,375 MG in SODIUM CHLORIDE 0.9% 100 ML IV SCH ×3 (08:43→21:42)
[2019-10-29] MEDS: FLUCONAZOLE 200 MG TABLET PO SCH (08:46)
[2019-10-29] MEDS: predniSONE 50 MG TABLET PO SCH (08:46)
[2019-10-29] MEDS: MULTIVITAMIN (CENTRUM) TABLET PO SCH (08:46)
[2019-10-29] MEDS: DOCUSATE SODIUM 100 MG CAPSULE PO SCH ×2 (08:47→21:42)
[2019-10-29] MEDS: FILGRASTIM-SNDZ 480 MCG/0.8 ML SYRINGE SUBCUT SCH (08:47)
[2019-10-29] MEDS: ACETAMINOPHEN 325 MG TABLET PO PRN (08:48)
[2019-10-29] MEDS ORDERED: DEXAMETHASONE INJ 20 MG in SODIUM CHLORIDE 0.9% 50 ML IV ONE (12:30)
[2019-10-29] MEDS ORDERED: IMMUNE GLOBULIN 10% 20 GM in PREMIX 1 EACH IV ONE (12:30)
[2019-10-29] MEDS: ALBUTEROL/IPRATROPIUM 3 ML NEB RESP TX SCH ×2 (12:51→19:19)
[2019-10-30] MEDS: ALBUTEROL/IPRATROPIUM 3 ML NEB RESP TX SCH ×4 (00:10→20:12)
[2019-10-30] MEDS: SODIUM CHLORIDE 0.9% 1,000 ML IV SCH ×2 (01:46→16:39)
[2019-10-30 03:23] LABS: Hematocrit 33.7 VOL% (42.0-52.0); Immature Granulocytes % 11.1 %; Immature Granulocytes Absolute 0.22 #; Lymphocytes # 0.8 10*3/uL (1.4-4.0); Lymphocytes % 37.7 % (21.2-54.2); Mean Corpuscular HGB Conc 32.6 GM/DL (32-36); Mean Corpuscular Volume 94.4 FL (87-102); Mean Platelet Volume 13.2 FL (9.6-12.0); Monocytes % 12.6 % (1.7-12.7); Neutrophils % 37.6 % (38.7-73.9); Red Blood Count 3.57 MC/CUMM (3.8-5.5); Red Cell Distribution Width 16.1 % (9.3-17.3)
[2019-10-30 03:25] LABS: Platelet Count 12 T/CUMM (130-400)
[2019-10-30 03:36] LABS: Calcium 9.5 MG/DL (8.5-10.1); Osmolality,Calculated 284.8 MOS/KG (273-304)
[2019-10-30] MEDS: PIPERACILLIN/TAZOBACTAM 3,375 MG in SODIUM CHLORIDE 0.9% 100 ML IV SCH (04:52)
[2019-10-30 04:55] LABS: Band Neutrophils 1 % (0-10); Lymphocytes 44 % (20-55); Segmented Neutrophils 51 % (50-85); Total Cells Counted 100
[2019-10-30 04:56] LABS: Anisocytosis 1+; Platelet Estimate Decreased
[2019-10-30] MEDS ORDERED: SODIUM CHLORIDE 0.9% 1,000 ML IV PRN ×4 (05:53→22:20)
[2019-10-30] MEDS: LEVOTHYROXINE 75 MCG TABLET PO SCH (06:14)
[2019-10-30] MEDS: MEROPENEM 500 MG in SODIUM CHLORIDE 0.9% 100 ML IV SCH ×4 (09:13→18:29)
[2019-10-30] MEDS: POLYETHYLENE GLYCOL POWDER 17 GM PACK PO SCH (09:19)
[2019-10-30] MEDS: FLUCONAZOLE 200 MG TABLET PO SCH (09:20)
[2019-10-30] MEDS: MULTIVITAMIN (CENTRUM) TABLET PO SCH (09:20)
[2019-10-30] MEDS: DOCUSATE SODIUM 100 MG CAPSULE PO SCH ×2 (09:20→22:04)
[2019-10-30] MEDS: FILGRASTIM-SNDZ 480 MCG/0.8 ML SYRINGE SUBCUT SCH (09:22)
[2019-10-30] MEDS ORDERED: ALTEPLASE 2 MG VIAL INTRACATH ONE (15:54)
[2019-10-30] MEDS: BENZONATATE 100 MG CAPSULE PO PRN (21:08)
[2019-10-31] MEDS: MEROPENEM 500 MG in SODIUM CHLORIDE 0.9% 100 ML IV SCH ×4 (00:13→20:46)
[2019-10-31] MEDS: ALBUTEROL/IPRATROPIUM 3 ML NEB RESP TX SCH ×4 (00:54→19:14)
[2019-10-31] MEDS: LEVOTHYROXINE 75 MCG TABLET PO SCH (05:59)
[2019-10-31] MEDS ORDERED: MYLANTA/LIDO VISC/DIPH 300 ML BOTTLE SWISH/SWAL PRN (08:31)
[2019-10-31 09:03] LABS: Basophils % 0.6 % (0.0-0.8); Eosinophils % 1.3 % (0.00-10.9); Hemoglobin 10.7 GM/DL (14.0-18.0); Immature Granulocytes % 1.9 %; Immature Granulocytes Absolute 0.03 #; Lymphocytes % 65.8 % (21.2-54.2); Mean Corpuscular HGB Conc 32.4 GM/DL (32-36); Mean Corpuscular Volume 95.1 FL (87-102); Mean Platelet Volume 11.3 FL (9.6-12.0); Monocytes % 24.1 % (1.7-12.7); Neutrophils % 6.3 % (38.7-73.9); Red Blood Count 3.47 MC/CUMM (3.8-5.5); Red Cell Distribution Width 16.6 % (9.3-17.3); White Blood Count 1.6 T/CUMM (4-12)
[2019-10-31 09:08] LABS: Platelet Count 11 T/CUMM (130-400)
[2019-10-31 09:28] LABS: Atypical Lymphocytes Few; Eosinophils 1 % (0-10); Hypochromasia 1+; Lymphocytes 83 % (20-55); Platelet Estimate Decreased; Segmented Neutrophils 13 % (50-85); Total Cells Counted 100
[2019-10-31 09:29] LABS: Macrocytosis Slight; Ovalocytes Slight
[2019-10-31 09:32] LABS: Calcium 8.7 MG/DL (8.5-10.1); Osmolality,Calculated 286.4 MOS/KG (273-304)
[2019-10-31] MEDS: FILGRASTIM-SNDZ 480 MCG/0.8 ML SYRINGE SUBCUT SCH (09:37)
[2019-10-31] MEDS: POLYETHYLENE GLYCOL POWDER 17 GM PACK PO SCH (09:38)
[2019-10-31] MEDS: DOCUSATE SODIUM 100 MG CAPSULE PO SCH ×2 (09:38→20:51)
[2019-10-31] MEDS: FLUCONAZOLE 200 MG TABLET PO SCH (09:38)
[2019-10-31] MEDS: ACYCLOVIR 200 MG CAPSULE PO SCH ×2 (09:38→20:47)
[2019-10-31] MEDS: MULTIVITAMIN (CENTRUM) TABLET PO SCH (09:38)
[2019-10-31] MEDS ORDERED: IMMUNE GLOBULIN 10% 20 GM in PREMIX 1 EACH IV ONE (11:00)
[2019-10-31] MEDS: BENZONATATE 100 MG CAPSULE PO PRN (20:46)
[2019-11-01] MEDS: MEROPENEM 500 MG in SODIUM CHLORIDE 0.9% 100 ML IV SCH ×4 (02:14→21:11)
[2019-11-01] MEDS: ALBUTEROL/IPRATROPIUM 3 ML NEB RESP TX SCH ×4 (02:35→20:25)
[2019-11-01 05:27] LABS: Eosinophils % 0.8 % (0.00-10.9); Hematocrit 29.7 VOL% (42.0-52.0); Hemoglobin 9.5 GM/DL (14.0-18.0); Lymphocytes # 0.9 10*3/uL (1.4-4.0); Mean Corpuscular Volume 97.7 FL (87-102); Monocytes % 26.7 % (1.7-12.7); Neutrophils % 1.5 % (38.7-73.9); Red Blood Count 3.04 MC/CUMM (3.8-5.5); Red Cell Distribution Width 16.3 % (9.3-17.3); White Blood Count 1.3 T/CUMM (4-12)
[2019-11-01 05:39] LABS: Platelet Count 9 T/CUMM (130-400)
[2019-11-01 05:45] LABS: Bilirubin,Total 1.1 MG/DL (0.2-1.0); Calcium 7.9 MG/DL (8.5-10.1); Osmolality,Calculated 275.8 MOS/KG (273-304); Total Protein 5.3 G/DL (6.4-8.3)
[2019-11-01] MEDS ORDERED: SODIUM CHLORIDE 0.9% 1,000 ML IV PRN (05:57)
[2019-11-01 06:18] LABS: Eosinophils 2 % (0-10); Lymphocytes 88 % (20-55); Segmented Neutrophils 1 % (50-85); Total Cells Counted 100
[2019-11-01 06:19] LABS: Atypical Lymphocytes Few
[2019-11-01 06:20] LABS: Anisocytosis 1+; Hypochromasia 1+; Macrocytosis 1+; Platelet Estimate Decreased
[2019-11-01] MEDS: LEVOTHYROXINE 75 MCG TABLET PO SCH (06:26)
[2019-11-01] MEDS ORDERED: SODIUM CHLORIDE 0.65% NASAL SPRAY 45 ML BOTTLE BOTH NARES PRN (08:57)
[2019-11-01] MEDS: FILGRASTIM-SNDZ 480 MCG/0.8 ML SYRINGE SUBCUT SCH (08:57)
[2019-11-01] MEDS: POLYETHYLENE GLYCOL POWDER 17 GM PACK PO SCH (08:58)
[2019-11-01] MEDS: MULTIVITAMIN (CENTRUM) TABLET PO SCH (08:58)
[2019-11-01] MEDS: ACYCLOVIR 200 MG CAPSULE PO SCH ×2 (08:58→21:11)
[2019-11-01] MEDS: FLUCONAZOLE 200 MG TABLET PO SCH (08:58)
[2019-11-01] MEDS: DOCUSATE SODIUM 100 MG CAPSULE PO SCH ×2 (08:58→21:12)
[2019-11-01] MEDS: BENZONATATE 100 MG CAPSULE PO PRN (21:05)
[2019-11-02] MEDS: ALBUTEROL/IPRATROPIUM 3 ML NEB RESP TX SCH ×2 (00:20→07:13)
[2019-11-02] MEDS: MEROPENEM 500 MG in SODIUM CHLORIDE 0.9% 100 ML IV SCH ×4 (05:40→20:54)
[2019-11-02] MEDS: LEVOTHYROXINE 75 MCG TABLET PO SCH (05:55)
[2019-11-02 06:12] LABS: Hematocrit 27.6 VOL% (42.0-52.0); Hemoglobin 9.1 GM/DL (14.0-18.0); Lymphocytes # 0.8 10*3/uL (1.4-4.0); Lymphocytes % 67.2 % (21.2-54.2); Mean Corpuscular Volume 95.2 FL (87-102); Mean Platelet Volume 10.1 FL (9.6-12.0); Monocytes % 31.2 % (1.7-12.7); Neutrophils % 1.6 % (38.7-73.9); Red Cell Distribution Width 15.9 % (9.3-17.3); White Blood Count 1.3 T/CUMM (4-12)
[2019-11-02 06:21] LABS: Platelet Count 15 T/CUMM (130-400)
[2019-11-02] MEDS ORDERED: SODIUM CHLORIDE 0.9% 1,000 ML IV PRN (06:35)
[2019-11-02 06:38] LABS: Calcium 8.1 MG/DL (8.5-10.1)
[2019-11-02 06:53] LABS: Anisocytosis 1+; Eosinophils 1 % (0-10); Lymphocytes 79 % (20-55); Ovalocytes Few; Total Cells Counted 100
[2019-11-02 06:54] LABS: Platelet Estimate Decreased
[2019-11-02] MEDS: POLYETHYLENE GLYCOL POWDER 17 GM PACK PO SCH (08:40)
[2019-11-02] MEDS: ACYCLOVIR 200 MG CAPSULE PO SCH ×2 (08:40→20:54)
[2019-11-02] MEDS: FILGRASTIM-SNDZ 480 MCG/0.8 ML SYRINGE SUBCUT SCH (08:41)
[2019-11-02] MEDS: DOCUSATE SODIUM 100 MG CAPSULE PO SCH ×2 (08:41→22:55)
[2019-11-02] MEDS: MULTIVITAMIN (CENTRUM) TABLET PO SCH (08:41)
[2019-11-02 08:43] LABS: PT Patient Result 10.5 SECS (9.8-11.9); Partial Thromboplastin Time 23.5 SECS (23.9-33.8)
[2019-11-03] MEDS: MEROPENEM 500 MG in SODIUM CHLORIDE 0.9% 100 ML IV SCH ×4 (01:43→19:54)
[2019-11-03 04:25] LABS: Hematocrit 28.6 VOL% (42.0-52.0); Hemoglobin 9.4 GM/DL (14.0-18.0); Lymphocytes # 0.8 10*3/uL (1.4-4.0); Lymphocytes % 65.8 % (21.2-54.2); Mean Corpuscular HGB Conc 32.9 GM/DL (32-36); Mean Corpuscular Volume 95.3 FL (87-102); Monocytes % 34.2 % (1.7-12.7); Red Cell Distribution Width 15.7 % (9.3-17.3); White Blood Count 1.2 T/CUMM (4-12)
[2019-11-03 04:33] LABS: Calcium 8.3 MG/DL (8.5-10.1); Osmolality,Calculated 269.2 MOS/KG (273-304)
[2019-11-03 04:37] LABS: Platelet Count 5 T/CUMM (130-400)
[2019-11-03 05:32] LABS: Anisocytosis Slight; Eosinophils 2 % (0-10); Lymphocytes 76 % (20-55); Macrocytosis Slight; Platelet Estimate Decreased; Segmented Neutrophils 4 % (50-85); Total Cells Counted 100
[2019-11-03] MEDS: LEVOTHYROXINE 75 MCG TABLET PO SCH (05:43)
[2019-11-03] MEDS: ACYCLOVIR 200 MG CAPSULE PO SCH ×2 (08:54→20:49)
[2019-11-03] MEDS: DOCUSATE SODIUM 100 MG CAPSULE PO SCH ×2 (08:54→20:49)
[2019-11-03] MEDS: FILGRASTIM-SNDZ 480 MCG/0.8 ML SYRINGE SUBCUT SCH (08:54)
[2019-11-03] MEDS: MULTIVITAMIN (CENTRUM) TABLET PO SCH (08:54)
[2019-11-03] MEDS: POLYETHYLENE GLYCOL POWDER 17 GM PACK PO SCH (08:54)
[2019-11-04] MEDS: MEROPENEM 500 MG in SODIUM CHLORIDE 0.9% 100 ML IV SCH ×4 (01:59→20:51)
[2019-11-04 05:27] LABS: Hematocrit 26.3 VOL% (42.0-52.0); Hemoglobin 8.8 GM/DL (14.0-18.0); Lymphocytes # 0.7 10*3/uL (1.4-4.0); Lymphocytes % 67.6 % (21.2-54.2); Mean Corpuscular HGB Conc 33.5 GM/DL (32-36); Mean Corpuscular Volume 91.6 FL (87-102); Mean Platelet Volume 10.9 FL (9.6-12.0); Monocytes % 30.5 % (1.7-12.7); Neutrophils % 0.9 % (38.7-73.9); Red Blood Count 2.87 MC/CUMM (3.8-5.5); Red Cell Distribution Width 15.1 % (9.3-17.3); White Blood Count 1.1 T/CUMM (4-12)
[2019-11-04 05:28] LABS: Platelet Count 9 T/CUMM (130-400)
[2019-11-04 05:55] LABS: Atypical Lymphocytes Few; Eosinophils 1 % (0-10); Hypochromasia Slight; Lymphocytes 90 % (20-55); Platelet Estimate Decreased; Smudge Cells Few; Total Cells Counted 100
[2019-11-04] MEDS: LEVOTHYROXINE 75 MCG TABLET PO SCH (06:16)
[2019-11-04 06:25] LABS: Osmolality,Calculated 273.1 MOS/KG (273-304)
[2019-11-04] MEDS ORDERED: SODIUM CHLORIDE 0.9% 1,000 ML IV PRN (07:25)
[2019-11-04] MEDS: FILGRASTIM-SNDZ 480 MCG/0.8 ML SYRINGE SUBCUT SCH (08:10)
[2019-11-04] MEDS: ACYCLOVIR 200 MG CAPSULE PO SCH ×2 (08:10→20:49)
[2019-11-04] MEDS: MULTIVITAMIN (CENTRUM) TABLET PO SCH (08:10)
[2019-11-04] MEDS: DOCUSATE SODIUM 100 MG CAPSULE PO SCH ×2 (08:11→20:49)
[2019-11-04] MEDS: POLYETHYLENE GLYCOL POWDER 17 GM PACK PO SCH (08:11)
[2019-11-04] MEDS: FLUCONAZOLE 200 MG TABLET PO SCH (09:09)
[2019-11-04] MEDS: MELATONIN 3 MG TABLET PO PRN (20:49)
[2019-11-05] MEDS: MEROPENEM 500 MG in SODIUM CHLORIDE 0.9% 100 ML IV SCH ×4 (02:32→21:17)
[2019-11-05 06:10] LABS: Hematocrit 25.4 VOL% (42.0-52.0); Hemoglobin 8.6 GM/DL (14.0-18.0); Lymphocytes # 0.8 10*3/uL (1.4-4.0); Lymphocytes % 78.9 % (21.2-54.2); Mean Corpuscular HGB Conc 33.9 GM/DL (32-36); Mean Platelet Volume 12.7 FL (9.6-12.0); Neutrophils % 1.1 % (38.7-73.9); Red Blood Count 2.73 MC/CUMM (3.8-5.5); Red Cell Distribution Width 15.1 % (9.3-17.3)
[2019-11-05 06:13] LABS: Platelet Count 7 T/CUMM (130-400)
[2019-11-05 06:31] LABS: Eosinophils 1 % (0-10); Lymphocytes 95 % (20-55); Segmented Neutrophils 1 % (50-85); Total Cells Counted 100
[2019-11-05 06:32] LABS: Atypical Lymphocytes Few; Hypochromasia 2+; Macrocytosis Slight; Platelet Estimate Decreased
[2019-11-05 06:41] LABS: Calcium 8.1 MG/DL (8.5-10.1); Osmolality,Calculated 271.2 MOS/KG (273-304)
[2019-11-05] MEDS ORDERED: SODIUM CHLORIDE 0.9% 1,000 ML IV PRN (07:42)
[2019-11-05] MEDS: ACYCLOVIR 200 MG CAPSULE PO SCH ×2 (08:22→21:16)
[2019-11-05] MEDS: MULTIVITAMIN (CENTRUM) TABLET PO SCH (08:22)
[2019-11-05] MEDS: DOCUSATE SODIUM 100 MG CAPSULE PO SCH ×2 (08:22→21:17)
[2019-11-05] MEDS: FLUCONAZOLE 200 MG TABLET PO SCH (08:22)
[2019-11-05] MEDS: POLYETHYLENE GLYCOL POWDER 17 GM PACK PO SCH (08:22)
[2019-11-05] MEDS: FILGRASTIM-SNDZ 480 MCG/0.8 ML SYRINGE SUBCUT SCH (08:22)
[2019-11-05] MEDS: LEVOTHYROXINE 75 MCG TABLET PO SCH (08:23)
[2019-11-05] MEDS: MELATONIN 3 MG TABLET PO PRN (21:17)
[2019-11-06] MEDS: MEROPENEM 500 MG in SODIUM CHLORIDE 0.9% 100 ML IV SCH ×4 (02:03→21:05)
[2019-11-06 04:51] LABS: Hemoglobin 8.1 GM/DL (14.0-18.0); Immature Granulocytes % 2.6 %; Immature Granulocytes Absolute 0.03 #; Lymphocytes # 0.9 10*3/uL (1.4-4.0); Lymphocytes % 77.8 % (21.2-54.2); Mean Corpuscular HGB Conc 33.8 GM/DL (32-36); Mean Platelet Volume 12.1 FL (9.6-12.0); Monocytes % 17.9 % (1.7-12.7); Neutrophils % 1.7 % (38.7-73.9); Red Blood Count 2.61 MC/CUMM (3.8-5.5); Red Cell Distribution Width 14.9 % (9.3-17.3); White Blood Count 1.2 T/CUMM (4-12)
[2019-11-06 04:57] LABS: Platelet Count 14 T/CUMM (130-400)
[2019-11-06 05:13] LABS: Calcium 8.2 MG/DL (8.5-10.1)
[2019-11-06 05:16] LABS: Hypochromasia Slight; Lymphocytes 90 % (20-55); Platelet Estimate Decreased; Segmented Neutrophils 4 % (50-85); Total Cells Counted 100
[2019-11-06 05:19] LABS: Atypical Lymphocytes Few
[2019-11-06] MEDS: LEVOTHYROXINE 75 MCG TABLET PO SCH (05:32)
[2019-11-06] MEDS: FILGRASTIM-SNDZ 480 MCG/0.8 ML SYRINGE SUBCUT SCH (08:27)
[2019-11-06] MEDS: POLYETHYLENE GLYCOL POWDER 17 GM PACK PO SCH (08:28)
[2019-11-06] MEDS: MULTIVITAMIN (CENTRUM) TABLET PO SCH (08:28)
[2019-11-06] MEDS: ACYCLOVIR 200 MG CAPSULE PO SCH ×2 (08:28→21:04)
[2019-11-06] MEDS: DOCUSATE SODIUM 100 MG CAPSULE PO SCH (08:28)
[2019-11-06] MEDS: FLUCONAZOLE 200 MG TABLET PO SCH (08:28)
[2019-11-06] MEDS: MELATONIN 3 MG TABLET PO PRN (21:04)
[2019-11-07] MEDS: DOCUSATE SODIUM 100 MG CAPSULE PO SCH ×3 (02:18→20:55)
[2019-11-07] MEDS: MEROPENEM 500 MG in SODIUM CHLORIDE 0.9% 100 ML IV SCH (02:19)
[2019-11-07 06:02] LABS: Hematocrit 24.1 VOL% (42.0-52.0); Hemoglobin 8.2 GM/DL (14.0-18.0); Lymphocytes # 0.9 10*3/uL (1.4-4.0); Lymphocytes % 77.9 % (21.2-54.2); Mean Corpuscular Volume 92.3 FL (87-102); Mean Platelet Volume 12.5 FL (9.6-12.0); Monocytes % 13.3 % (1.7-12.7); Neutrophils % 8.8 % (38.7-73.9); Red Blood Count 2.61 MC/CUMM (3.8-5.5); White Blood Count 1.1 T/CUMM (4-12)
[2019-11-07 06:06] LABS: Platelet Count 13 T/CUMM (130-400)
[2019-11-07] MEDS: LEVOTHYROXINE 75 MCG TABLET PO SCH (06:11)
[2019-11-07 06:22] LABS: Albumin 2.3 G/DL (3.4-5.0); Bilirubin,Total 1.8 MG/DL (0.2-1.0); Calcium 8.2 MG/DL (8.5-10.1); Osmolality,Calculated 276.8 MOS/KG (273-304); Total Protein 6.1 G/DL (6.4-8.3)
[2019-11-07 06:24] LABS: Atypical Lymphocytes Few; Eosinophils 3 % (0-10); Lymphocytes 90 % (20-55); Platelet Estimate Decreased; Segmented Neutrophils 5 % (50-85); Total Cells Counted 100
[2019-11-07 06:25] LABS: Hypochromasia 2+; Microcytosis 1+
[2019-11-07] MEDS: POLYETHYLENE GLYCOL POWDER 17 GM PACK PO SCH (09:46)
[2019-11-07] MEDS: MULTIVITAMIN (CENTRUM) TABLET PO SCH (09:47)
[2019-11-07] MEDS: FLUCONAZOLE 200 MG TABLET PO SCH (09:48)
[2019-11-07] MEDS: ACYCLOVIR 200 MG CAPSULE PO SCH ×2 (09:53→20:55)
[2019-11-07] MEDS: FILGRASTIM-SNDZ 480 MCG/0.8 ML SYRINGE SUBCUT SCH (10:08)
[2019-11-07] MEDS: CIPROFLOXACIN 250 MG TABLET PO SCH ×2 (12:02→20:55)
[2019-11-07] MEDS: MELATONIN 3 MG TABLET PO PRN (20:55)
[2019-11-08] MEDS: LEVOTHYROXINE 75 MCG TABLET PO SCH (06:02)
[2019-11-08 06:39] LABS: Eosinophils % 0.7 % (0.00-10.9); Hemoglobin 8.4 GM/DL (14.0-18.0); Immature Granulocytes % 0.7 %; Immature Granulocytes Absolute 0.01 #; Lymphocytes % 72.3 % (21.2-54.2); Mean Corpuscular HGB Conc 33.6 GM/DL (32-36); Mean Corpuscular Volume 91.6 FL (87-102); Mean Platelet Volume 13.4 FL (9.6-12.0); Monocytes % 13.9 % (1.7-12.7); Neutrophils % 12.4 % (38.7-73.9); Red Blood Count 2.73 MC/CUMM (3.8-5.5); Red Cell Distribution Width 15.3 % (9.3-17.3); White Blood Count 1.4 T/CUMM (4-12)
[2019-11-08 06:43] LABS: Platelet Count 15 T/CUMM (130-400)
[2019-11-08 06:54] LABS: Calcium 8.2 MG/DL (8.5-10.1); Osmolality,Calculated 276.8 MOS/KG (273-304)
[2019-11-08 07:03] LABS: Lymphocytes 86 % (20-55); Nucleated Red Blood Cells 1 (0-5); Platelet Estimate Decreased; Segmented Neutrophils 10 % (50-85); Total Cells Counted 100
[2019-11-08 07:04] LABS: Atypical Lymphocytes Moderate; Hypochromasia 2+; Microcytosis Slight
[2019-11-08] MEDS: MULTIVITAMIN (CENTRUM) TABLET PO SCH (09:43)
[2019-11-08] MEDS: FLUCONAZOLE 200 MG TABLET PO SCH (09:43)
[2019-11-08] MEDS: ACYCLOVIR 200 MG CAPSULE PO SCH (09:43)
[2019-11-08] MEDS: CIPROFLOXACIN 250 MG TABLET PO SCH (09:43)
[2019-11-08] MEDS: FILGRASTIM-SNDZ 480 MCG/0.8 ML SYRINGE SUBCUT SCH (09:43)
[2019-11-08] MEDS: POLYETHYLENE GLYCOL POWDER 17 GM PACK PO SCH (09:44)
[2019-11-08] MEDS: DOCUSATE SODIUM 100 MG CAPSULE PO SCH (09:44)
[2019-11-08] MEDS ORDERED: HEPARIN LOCK FLUSH 500 UNIT/5 ML SYRINGE IV ONE (12:36)
[2019-11-08 12:40] VITALS: BP 103/73
== END 2019-11-08 13:15 | disposition home or self-care (01) | DRG 841 ==
LOC: N.ED 14:22 → N.EDINP 14:22 → N.4E 18:42 → SUATTDRO 10-26 09:38
PROVIDERS: ADMIT Family Medicine; ATTEND Family Medicine